=== PATIENT | female | born 1990 | race Caucasian/White ===

== ENCOUNTER 2020-02-21 07:05 | Inpatient (IN) | payer BC, MEDICAID ==
[2020-02-21] MEDS ORDERED: Misoprostol 50 MCG (1/2 of 100 MCG) Tab VAG ONE ×3 (07:15→18:00)
[2020-02-21] MEDS ORDERED: Sodium Chloride 0.9% 10 ML Syringe FLUSH PRN (08:20)
[2020-02-21] MEDS ORDERED: fentaNYL 100 MCG/2 ML SDV IVPUSH PRN (08:20)
--- NOTE | 2020-02-21 08:32 | PCM.LDHP ---
L&D History of Present Illness - General Date of Service: 02/21/20 (Planned induction) Admit Problem/Dx: Patient Status Order with Admit Dx/Problem 02/21/20 08:20 Patient Status [ADT] Routine Admission Diagnosis/Problem Admission Diagnosis/Problem Source of Information: Patient History Limitations: Reports: No Limitations - History of Present Illness Introduction:: This 29 year old who is 39 weeks gestation presents for induction, polyhydramnios and baby consistently in the 97th % for growth. CLEMENTE 02/28/20. 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: : 4 Para: 3 LMP (Approximate): (CLEMENTE 02/28/20) Social & Family History - Family History Family Medical History: Noncontributory - Tobacco Use Smoking Status *Q: Never Smoker Second Hand Smoke Exposure: No - Caffeine Use Caffeine Use: Reports: Coffee, Soda Other Caffeine Use: 1-2/day - Recreational Drug Use Recreational Drug Use: No H&P Review of Systems - Review of Systems: Review Of Systems: See Below General: Reports: No Symptoms HEENT: Reports: No Symptoms Pulmonary: Reports: No Symptoms Cardiovascular: Reports: No Symptoms Gastrointestinal: Reports: No Symptoms Genitourinary: Reports: No Symptoms Musculoskeletal: Reports: No Symptoms Skin: Reports: No Symptoms Psychiatric: Reports: No Symptoms Neurological: Reports: No Symptoms Hematologic/Lymphatic: Reports: No Symptoms Immunologic: Reports: No Symptoms L&D Exam - Exam Exam: See Below - Vital Signs Weight: 210 lb - OB Specific Movement: Active Heart Tones: Present Heart Tones per Min: 150 Heart Rate (FHR) Variability: Moderate (6-25 bmp) Presentation: Vertex Estimated Weight: 9lbs - Galvez Score Galvez Score Cervix Position: Anterior Galvez Score Consistency: Soft Galvez Score Effacement: 51-70% Galvez Score Dilation: 1-2 cm Galvez Score Infant's Station: -1 ,0 Galvez Score Total: 9 - Exam General: Alert, Oriented HEENT: PERRLA Neck: Supple Lungs: Clear to Auscultation, Normal Respiratory Effort Cardiovascular: Regular Rate, Regular Rhythm GI/Abdominal Exam: Soft Rectal Exam: Normal Exam Genitourinary: Normal external exam, Cervical dilitation, Enlarged uterus Back Exam: Normal Inspection, Full Range of Motion Extremities: Normal Inspection, No Pedal Edema, Normal Capillary Refill Skin: Warm Neurological: Cranial Nerves Intact, Reflexes Equal Bilateral Psychiatric: Alert, Normal Affect, Normal Mood - Patient Data Lab Results Last 24 hrs: Laboratory Results - last 24 hr 02/21/20 02/21/20 02/21/20 Range/Units 07:16 07:16 07:29 WBC 11.4 H (4.5-11.0) K/uL RBC 3.90 (3.30-5.50) M/uL Hgb 12.2 (12.0-15.0) g/dL Hct 37.3 (36.0-48.0) % MCV 96 (80-98) fL MCH 31 (27-31) pg MCHC 33 (32-36) % Plt Count 137 L (150-400) K/uL Neut % (Auto) 70 H (36-66) % Lymph % (Auto) 17 L (24-44) % [place] % (Auto) 11 H (2-6) % Eos % (Auto) 1 L (2-4) % Baso % (Auto) 0 (0-1) % Urine Color Yellow (YELLOW) Urine Appearance Clear (CLEAR) Urine pH 6.0 (5.0-8.0) Ur Specific [place] 1.010 (1.008-1.030) Urine Protein Negative (NEGATIVE) mg/dL Urine Glucose (UA) Negative (NEGATIVE) mg/dL Urine Ketones Negative (NEGATIVE) mg/dL Urine Occult Blood Negative (NEGATIVE) Urine Nitrite Negative (NEGATIVE) Urine Bilirubin Negative (NEGATIVE) Urine Urobilinogen 0.2 (0.2-1.0) EU/dL Ur Leukocyte Esterase Negative (NEGATIVE) Urine RBC 0-5 (0-5) Urine WBC 0-5 (0-5) Ur Epithelial Cells Not seen Amorphous Sediment Not seen Urine Bacteria Not seen Urine Mucus Not seen Urine Opiates Screen Negative (NEGATIVE) Ur Oxycodone Screen Negative (NEGATIVE) Urine Methadone Screen Negative (NEGATIVE) Ur Propoxyphene Screen Negative (NEGATIVE) Ur Barbiturates Screen Negative (NEGATIVE) Ur Tricyclics Screen Negative (NEGATIVE) Ur Phencyclidine Scrn Negative (NEGATIVE) Ur Amphetamine Screen Negative (NEGATIVE) U Methamphetamines Scrn Negative (NEGATIVE) Urine MDMA Screen Negative (NEGATIVE) U Benzodiazepines Scrn Negative (NEGATIVE) U Cocaine Metab Screen Negative (NEGATIVE) U Marijuana (THC) Screen Negative (NEGATIVE) Result Diagrams: 02/21/20 07:29 - Problem List (1) Large for gestational age fetus SNOMED Code(s): 978800274 ICD Code: UNQ3432 - Status: Acute Current Visit: Yes (2) Polyhydramnios affecting SNOMED Code(s): 98880870, 276171433 ICD Code: O40.9XX0 - POLYHYDRAMNIOS, UNSP TRIMESTER, NOT APPLICABLE OR UNSP Status: Acute Current Visit: Yes (3) SNOMED Code(s): 33715761 ICD Code: Z34.90 - ENCNTR FOR SUPRVSN OF NORMAL , UNSP, UNSP TRIMESTER Status: Acute Current Visit: Yes Qualifiers: Weeks of gestation: 39 weeks Qualified Code(s): Z3A.39 - 39 weeks gestation of Problem List Initiated/Reviewed/Updated: Yes Orders Last 24hrs: Active Orders 24 hr Category Date Time Status Patient Status [ADT] Routine ADT 02/21/20 08:20 Ordered Antiembolic Devices [RC] .Routine Care 02/21/20 08:23 Ordered Communication Order [RC] ASDIRECTED Care 02/21/20 08:20 Ordered Heart Tones [RC] PER UNIT ROUTINE Care 02/21/20 08:20 Ordered Non Stress Test [RC] Click to Edit Care 02/21/20 08:20 Ordered Notify Provider Vital Signs [RC] PRN Care 02/21/20 08:20 Ordered Notify Provider [RC] PRN Care 02/21/20 08:20 Ordered VTE/DVT Education [RC] Click to Edit Care 02/21/20 08:23 Ordered Vital Signs [RC] PER UNIT ROUTINE Care 02/21/20 08:20 Ordered Oxytocin/Normal Saline [Pitocin in NS 20 Units/1,000 ML Med 02/21/20 08:24 Ordered ] 20 unit in 1,000 ml IV ONETIME Sodium Chloride 0.9% [Saline Flush] Med 02/21/20 08:20 Ordered 10 ml FLUSH ASDIRECTED PRN fentaNYL [Sublimaze] Med 02/21/20 08:20 Ordered 100 mcg IVPUSH Q1H PRN DVT/VTE Prophylaxis Reflex [OM.PC] Routine Oth 02/21/20 08:20 Ordered Saline Lock Insert [OM.PC] Routine Oth 02/21/20 08:20 Ordered Resuscitation Status Routine Resus Stat 02/21/20 08:20 Ordered Medication Orders Fentanyl (Sublimaze) 100 mcg IVPUSH Q1H PRN PRN Reason: Pain (moderate 4-6) Oxytocin/Sodium Chloride (Pitocin In Ns 20 Units/1,000 Ml) 20 unit in 1,000 mls @ 999 mls/hr IV ONETIME ONE; Protocol Stop: 02/21/20 09:24 Sodium Chloride (Saline Flush) 10 ml FLUSH ASDIRECTED PRN PRN Reason: Keep Vein Open Assessment/Plan Comment:: 02/21/20 29 year old who is 39 weeks presents for induction history of polyhydramnios and large for gestation age baby. CE 2/50/0, galvez score 9 Miso 50 mcg placed vaginally at 0800 reactive NST Cat one strip monitor for active labor.
[2020-02-21] MEDS ORDERED: Misoprostol 25 MCG (1/4 of 100 MCG) Tab VAG ONE (11:54)
--- NOTE | 2020-02-21 12:18 | PCM.PNLD ---
Labor Progress Note - VS & Meds Vital Signs: Last Vital Signs Temp 98.0 F 02/21/20 08:00 Pulse 89 02/21/20 08:00 Resp 16 02/21/20 09:30 BP 122/62 02/21/20 09:30 Pulse Ox Active Medications: Current Medications Fentanyl (Sublimaze) 100 mcg IVPUSH Q1H PRN PRN Reason: Pain (moderate 4-6) Sodium Chloride (Saline Flush) 10 ml FLUSH ASDIRECTED PRN PRN Reason: Keep Vein Open Discontinued Medications Oxytocin/Sodium Chloride (Pitocin In Ns 20 Units/1,000 Ml) 20 unit in 1,000 mls @ 999 mls/hr IV ONETIME ONE; Protocol Stop: 02/21/20 10:00 Misoprostol (Cytotec) 50 mcg VAG ONETIME ONE Stop: 02/21/20 07:16 Last Admin: 02/21/20 08:11 Dose: 50 mcg Misoprostol (Cytotec) 50 mcg VAG ONETIME ONE Stop: 02/21/20 11:55 Misoprostol (Cytotec) 25 mcg VAG ONETIME ONE Stop: 02/21/20 11:55 Last Admin: 02/21/20 12:14 Dose: 25 mcg - Uterine Contractions Uterine Monitoring Mode: External [place] Contraction Frequency (min): 1-4 Contraction Duration (sec): 30-50 Contraction Intensity: Mild Uterine Resting Tone: Soft - Monitoring Monitor Mode: Doppler/Auscultation Heart Rate (FHR) Variability: Moderate (6-25 bmp) Accelerations: Present, 15x15 Decelerations: None Strip Review: Category I - Vaginal Exam Dilation (cm): 3-4 Effacement (Percent): 75 Station: 0 Cervical Position: Anterior Sterile Vaginal Exam Performed By: Aimee Daniel Vaginal Exam Comment: cytotec 25mcg inserted @ 12:11 - Labor Progress (Free Text) Labor Progress: progress since AM check. Tried AROM not successful. will try later if she doesn' t rupture on her own. comfortable will reassess at 1530 Monitor for active labor
[2020-02-21] MEDS ORDERED: Lactated Ringers 1,000 ML IV ONE (14:32)
[2020-02-21] MEDS ORDERED: Lactated Ringers 500 ML IV ONE (14:45)
--- NOTE | 2020-02-21 15:16 | PCM.PNLD ---
Labor Progress Note - VS & Meds Vital Signs: Last Vital Signs Temp 99.2 F 02/21/20 12:00 Pulse 94 02/21/20 12:00 Resp 18 02/21/20 12:00 BP 115/78 02/21/20 12:00 Pulse Ox 96 02/21/20 12:00 Active Medications: Current Medications Fentanyl (Sublimaze) 100 mcg IVPUSH Q1H PRN PRN Reason: Pain (moderate 4-6) Lactated Ringer's (Ringers, Lactated) 500 mls @ 999 mls/hr IV BOLUS ONE Stop: 02/21/20 15:15 Last Admin: 02/21/20 14:51 Dose: 999 mls/hr Sodium Chloride (Saline Flush) 10 ml FLUSH ASDIRECTED PRN PRN Reason: Keep Vein Open Discontinued Medications Oxytocin/Sodium Chloride (Pitocin In Ns 20 Units/1,000 Ml) 20 unit in 1,000 mls @ 999 mls/hr IV ONETIME ONE; Protocol Stop: 02/21/20 10:00 Last Admin: 02/21/20 12:58 Dose: Not Given Oxytocin/Sodium Chloride (Pitocin In Ns 20 Units/1,000 Ml) Confirm Administered Dose 20 unit in 1,000 mls @ as directed .ROUTE .STK-MED ONE Stop: 02/21/20 12:18 Misoprostol (Cytotec) 50 mcg VAG ONETIME ONE Stop: 02/21/20 07:16 Last Admin: 02/21/20 08:11 Dose: 50 mcg Misoprostol (Cytotec) 50 mcg VAG ONETIME ONE Stop: 02/21/20 11:55 Last Admin: 02/21/20 12:16 Dose: Not Given Misoprostol (Cytotec) 25 mcg VAG ONETIME ONE Stop: 02/21/20 11:55 Last Admin: 02/21/20 12:14 Dose: 25 mcg - Uterine Contractions Uterine Monitoring Mode: External [place] Contraction Frequency (min): 1-2 Contraction Duration (sec): 40-80 Contraction Intensity: Moderate Uterine Resting Tone: Soft - Monitoring Monitor Mode: Doppler/Auscultation Heart Rate (FHR) Variability: Moderate (6-25 bmp) Accelerations: Present, 15x15 Decelerations: None Strip Review: Category I - Vaginal Exam Dilation (cm): 5-6 Effacement (Percent): 75 Station: 0 Cervical Position: Anterior Sterile Vaginal Exam Performed By: Aimee Daniel Vaginal Exam Comment: AROM clear fluid - Labor Progress (Free Text) Labor Progress: contractions regular every 2 minutes. Cat 2 strip, variables, position change and fluids active labor Plan ancipitate a vaginal delivery
[2020-02-21] MEDS ORDERED: Carboprost Tromethamine 250 MCG/1 ML Amp IM ONE (18:00)
[2020-02-21] MEDS ORDERED: Carboprost Tromethamine 250 MCG/1 ML Amp ONE (18:08)
[2020-02-21] MEDS ORDERED: Misoprostol 200 MCG Tab ONE (18:08)
[2020-02-21] MEDS ORDERED: Acetaminophen 325 MG Tab, 50 Tab Bulk Bottle PO PRN (18:32)
[2020-02-21] MEDS ORDERED: Benzocaine 20% Top Spray 56 GM Bottle TOP ONE (18:32)
[2020-02-21] MEDS ORDERED: Ibuprofen 200 MG Tab, 24 Tab Bulk Bottle PO PRN (18:32)
[2020-02-21] MEDS ORDERED: Lanolin 100% Cream 40 GM Tube TOP ONE (18:32)
[2020-02-21] MEDS ORDERED: Witch Hazel Medicated Pads 100/Jar TOP ONE (18:32)
[2020-02-21] MEDS ORDERED: Hydrocortisone 2.5% Crm 30 GM Tube TOP PRN (18:32)
[2020-02-21] MEDS ORDERED: Methylergonovine 0.2 MG/1 ML Amp IM PRN (18:42)
--- NOTE | 2020-02-21 18:48 | PCM.DEL ---
L & D Note - General Info Date of Service: 02/21/20 (Chidbirth) Mother's Due Date: 02/28/20 - Delivery Note Labor: Spontaneous Cervical Ripening Method: Misoprostil Delivery Outcome: Livebirth Delivery Method: Spontaneous Vaginal Delivery-Single Infant Delivery Mode: Spontaneous Presentation: Vertex Nuchal Cord: None Anesthesia Type: Nitrous Oxide Amniotic Fluid Description: Clear Episiotomy Type: None Laceration: None Placenta: Intact, Spontaneous Cord: 3 Vessels Estimated Blood Loss: 500 (PPH) Resuscitation Needed: No : Bulb Syringe, Stimulated, Warmed Provider: Aimee Daniel Score 1 min: 8 Score 5 min: 9 Post Delivery Events: Hemorrhage Second Stage Interventions: Reports: Second Nurse Reviewed Heart Tones, Encouragement Given, Pushing Effectively, Pushing, McRobert's Position Delivery Comments (Free Text/Narrative):: This 29 year old G4now P4 who is 39 weeks gestation delivered a viable male over an intact perineum at 1753 in HARIS position. The was placed on mother's chest where he cried spontaneously. Delayed cord clamping and skin to skin were done. He was dried and stimulated Agars of 8,9 all for color. Three vessel cord. the placenta was expressed spontaneously and it was huge. Bleeding with placenta required Methergine, Hemabate and Cytotec as well as Pitocin that was running for active management of the third stage. Packing was placed in the vaginal as the vagina and perineum are intact. no lacerations to the rectum. EBL greater then 500cc weight 8-6 First stage 9247-8857 Second stage 3584-4598 third stage 4067-6962 Induction Criteria - Galvez Score Galvez Score Dilation: 1-2 cm Galvez Score Effacement: >80% Galvez Score Infant's Station: -1 ,0 Galvez Score Consistency: Soft Galvez Score Cervix Position: Midposition Galvez Score Total: 9 Galvez Score Presenting Part: Reports: Cephalic - Induction Gestational Age >/= 39 wks: Yes Estimated Pelvis: Reports: Adequate Reassuring Monitoring Strip: Yes Absence of Tachy Systole: Yes - General Info Date of Service: 02/21/20 Admission Dx/Problem (Free Text): Patient Status Order with Admit Dx/Problem 02/21/20 08:20 Patient Status [ADT] Routine Admission Diagnosis/Problem Admission Diagnosis/Problem Functional Status: Reports: Pain Controlled - Review of Systems General: Reports: No Symptoms HEENT: Reports: No Symptoms Pulmonary: Reports: No Symptoms Cardiovascular: Reports: No Symptoms Gastrointestinal: Reports: No Symptoms Genitourinary: Reports: No Symptoms Musculoskeletal: Reports: No Symptoms Skin: Reports: No Symptoms Neurological: Reports: No Symptoms Psychiatric: Reports: No Symptoms - Patient Data Vitals - Most Recent: Last Vital Signs Temp 98.5 F 02/21/20 15:00 Pulse 78 02/21/20 14:20 Resp 18 02/21/20 14:20 BP 111/65 02/21/20 14:20 Pulse Ox 100 02/21/20 15:18 Weight - Most Recent: 210 lb I&O - Last 24 Hours: Intake & Output 02/21/20 02/21/20 02/21/20 06:59 14:59 22:59 Intake Total 240 Balance 240 Lab Results Last 24 Hours: Laboratory Results - last 24 hr 02/21/20 02/21/20 02/21/20 Range/Units 07:16 07:16 07:29 WBC 11.4 H (4.5-11.0) K/uL RBC 3.90 (3.30-5.50) M/uL Hgb 12.2 (12.0-15.0) g/dL Hct 37.3 (36.0-48.0) % MCV 96 (80-98) fL MCH 31 (27-31) pg MCHC 33 (32-36) % Plt Count 137 L (150-400) K/uL Neut % (Auto) 70 H (36-66) % Lymph % (Auto) 17 L (24-44) % Yell % (Auto) 11 H (2-6) % Eos % (Auto) 1 L (2-4) % Baso % (Auto) 0 (0-1) % Urine Color Yellow (YELLOW) Urine Appearance Clear (CLEAR) Urine pH 6.0 (5.0-8.0) Ur Specific [place] 1.010 (1.008-1.030) Urine Protein Negative (NEGATIVE) mg/dL Urine Glucose (UA) Negative (NEGATIVE) mg/dL Urine Ketones Negative (NEGATIVE) mg/dL Urine Occult Blood Negative (NEGATIVE) Urine Nitrite Negative (NEGATIVE) Urine Bilirubin Negative (NEGATIVE) Urine Urobilinogen 0.2 (0.2-1.0) EU/dL Ur Leukocyte Esterase Negative (NEGATIVE) Urine RBC 0-5 (0-5) Urine WBC 0-5 (0-5) Ur Epithelial Cells Not seen Amorphous Sediment Not seen Urine Bacteria Not seen Urine Mucus Not seen Urine Opiates Screen Negative (NEGATIVE) Ur Oxycodone Screen Negative (NEGATIVE) Urine Methadone Screen Negative (NEGATIVE) Ur Propoxyphene Screen Negative (NEGATIVE) Ur Barbiturates Screen Negative (NEGATIVE) Ur Tricyclics Screen Negative (NEGATIVE) Ur Phencyclidine Scrn Negative (NEGATIVE) Ur Amphetamine Screen Negative (NEGATIVE) U Methamphetamines Scrn Negative (NEGATIVE) Urine MDMA Screen Negative (NEGATIVE) U Benzodiazepines Scrn Negative (NEGATIVE) U Cocaine Metab Screen Negative (NEGATIVE) U Marijuana (THC) Screen Negative (NEGATIVE) Med Orders - Current: Current Medications Acetaminophen (Tylenol Bulk Bottle) 0 mg PO Q4H PRN PRN Reason: Pain Benzocaine (Eqwl-V-Dthsbjz 20% Mertens) 0 gm TOP Q4H ONE Stop: 02/21/20 18:33 Emollient Ointment (Lansinoh Hpa) 1 gm TOP ASDIRECTED ONE Stop: 02/21/20 18:33 Fentanyl (Sublimaze) 100 mcg IVPUSH Q1H PRN PRN Reason: Pain (moderate 4-6) Hydrocortisone (Proctozone-Hc 2.5% Crm) 1 gm TOP ASDIRECTED PRN PRN Reason: Itching Ibuprofen (Motrin Bulk Bottle) 600 mg PO Q6H PRN PRN Reason: Pain Sodium Chloride (Saline Flush) 10 ml FLUSH ASDIRECTED PRN PRN Reason: Keep Vein Open Witch Kathy (Tucks) 1 pad TOP ASDIRECTED ONE Stop: 02/21/20 18:33 Discontinued Medications Carboprost Tromethamine (Hemabate Ds) Confirm Administered Dose 250 mcg .ROUTE .STK-MED ONE Stop: 02/21/20 18:09 Oxytocin/Sodium Chloride (Pitocin In Ns 20 Units/1,000 Ml) 20 unit in 1,000 mls @ 999 mls/hr IV ONETIME ONE; Protocol Stop: 02/21/20 10:00 Last Admin: 02/21/20 12:58 Dose: Not Given Oxytocin/Sodium Chloride (Pitocin In Ns 20 Units/1,000 Ml) Confirm Administered Dose 20 unit in 1,000 mls @ as directed .ROUTE .STK-MED ONE Stop: 02/21/20 12:18 Last Admin: 02/21/20 16:50 Dose: 999 mls/hr Lactated Ringer's (Ringers, Lactated) 500 mls @ 999 mls/hr IV BOLUS ONE Stop: 02/21/20 15:15 Last Admin: 02/21/20 14:51 Dose: 999 mls/hr Misoprostol (Cytotec) 50 mcg VAG ONETIME ONE Stop: 02/21/20 07:16 Last Admin: 02/21/20 08:11 Dose: 50 mcg Misoprostol (Cytotec) 50 mcg VAG ONETIME ONE Stop: 02/21/20 11:55 Last Admin: 02/21/20 12:16 Dose: Not Given Misoprostol (Cytotec) 25 mcg VAG ONETIME ONE Stop: 02/21/20 11:55 Last Admin: 02/21/20 12:14 Dose: 25 mcg Misoprostol (Cytotec) Confirm Administered Dose 800 mcg .ROUTE .STK-MED ONE Stop: 02/21/20 18:09 - Exam General: Alert, Oriented HEENT: Pupils Equal Neck: Supple Lungs: Clear to Auscultation, Normal Respiratory Effort Cardiovascular: Regular Rate, Regular Rhythm GI/Abdominal Exam: Normal Bowel Sounds, Soft, Non-Tender (Female) Exam: Normal External Exam, Enlarged Uterus, Vaginal Bleeding Back Exam: Normal Inspection Extremities: No Pedal Edema, Normal Capillary Refill Skin: Warm, Dry Wound/Incisions: Healing Well Neurological: No New Focal Deficit Psy/Mental Status: Alert, Normal Affect, Normal Mood - Problem List & Annotations (1) Large for gestational age fetus SNOMED Code(s): 097737217 Code(s): IAI5245 - Status: Acute Current Visit: Yes (2) Polyhydramnios affecting SNOMED Code(s): 71999775, 212735416 Code(s): O40.9XX0 - POLYHYDRAMNIOS, UNSP TRIMESTER, NOT APPLICABLE OR UNSP Status: Acute Current Visit: Yes (3) SNOMED Code(s): 11005969 Code(s): Z34.90 - ENCNTR FOR SUPRVSN OF NORMAL , UNSP, UNSP TRIMESTER Status: Acute Current Visit: Yes Qualifiers: Weeks of gestation: 39 weeks Qualified Code(s): Z3A.39 - 39 weeks gestation of - Problem List Review Problem List Initiated/Reviewed/Updated: Yes - My Orders Last 24 Hours: My Active Orders 02/21/20 08:20 Communication Order [RC] ASDIRECTED Heart Tones [RC] PER UNIT ROUTINE Non Stress Test [RC] Click to Edit Notify Provider Vital Signs [RC] PRN Notify Provider [RC] PRN Vital Signs [RC] PER UNIT ROUTINE Sodium Chloride 0.9% [Saline Flush] 10 ml FLUSH ASDIRECTED PRN fentaNYL [Sublimaze] 100 mcg IVPUSH Q1H PRN DVT/VTE Prophylaxis Reflex [OM.PC] Routine Saline Lock Insert [OM.PC] Routine Resuscitation Status Routine 02/21/20 08:23 Antiembolic Devices [RC] .Routine VTE/DVT Education [RC] Click to Edit 02/21/20 15:18 Communication Order [RC] Per Unit Routine Communication Order [RC] Per Unit Routine Communication Order [RC] Per Unit Routine Nitrous Oxide Delivery [RC] ASDIRECTED Oxygen Therapy [RC] ASDIRECTED Pulse Oximetry [RC] ASDIRECTED Verify Patient Consent Obtain [RC] ASDIRECTED Vital Signs [RC] PER UNIT ROUTINE 02/21/20 18:32 Patient Status [ADT] Routine Vital Signs [RC] PFP Acetaminophen [Tylenol Bulk Bottle] See Dose Instructions PO Q4H PRN Benzocaine [Tloe-R-Bksxtvn 20% Mertens] See Dose Instructions TOP Q4H ONE Hydrocortisone [Proctozone-HC 2.5% Crm] 1 gm TOP ASDIRECTED PRN Ibuprofen [Motrin Bulk Bottle] 600 mg PO Q6H PRN Lanolin [Lansinoh HPA] 1 gm TOP ASDIRECTED ONE witch Kathy [Tucks] 1 pad TOP ASDIRECTED ONE 02/22/20 05:11 CBC WITH AUTO DIFF [HEME] AM - Assessment Assessment:: 02/21/20 29 year old , 39 weeks gestational. with PPH greater then 500cc - Plan Plan:: 02/21/20 29 year old who is 39 weeks presents for induction history of polyhydramnios and large for gestation age baby. CE 2/50/0, galvez score 9 Miso 50 mcg placed vaginally at 0800 reactive NST Cat one strip monitor for active labor. 02/21/20 routine cares watch for bleeding CBC in am support
[2020-02-21] MEDS ORDERED: Ondansetron 4 MG/2 ML SDV IVPUSH ONE (18:53)
[2020-02-21] MEDS ORDERED: Metoclopramide 10 MG/2 ML SDV IVPUSH PRN (20:49)
[2020-02-21] MEDS ORDERED: Ondansetron 4 MG/2 ML SDV IVPUSH PRN (21:04)
--- NOTE | 2020-02-22 08:09 | PCM.PNPP ---
- General Info Date of Service: 02/22/20 Functional Status: Reports: Pain Controlled - Review of Systems General: Reports: No Symptoms HEENT: Reports: No Symptoms Pulmonary: Reports: No Symptoms Cardiovascular: Reports: No Symptoms Gastrointestinal: Reports: No Symptoms Genitourinary: Reports: No Symptoms Musculoskeletal: Reports: No Symptoms Skin: Reports: No Symptoms Neurological: Reports: No Symptoms Psychiatric: Reports: No Symptoms - General Info Date of Service: 02/22/20 - Patient Data Vital Signs - Most Recent: Last Vital Signs Temp 37.8 C 02/22/20 07:00 Pulse 82 02/22/20 07:00 Resp 18 02/22/20 07:00 BP 111/55 L 02/22/20 07:00 Pulse Ox 96 02/22/20 07:00 Weight - Most Recent: 95.254 kg I&O - Last 24 Hours: Intake & Output 02/21/20 02/22/20 02/22/20 22:59 06:59 14:59 Intake Total 2400 Output Total 300 Balance -300 2400 Lab Results - Last 24 Hours: Laboratory Results - last 24 hr 02/22/20 Range/Units 05:00 WBC 18.7 H (4.5-11.0) K/uL RBC 3.78 (3.30-5.50) M/uL Hgb 11.6 L (12.0-15.0) g/dL Hct 35.9 L (36.0-48.0) % MCV 95 (80-98) fL MCH 31 (27-31) pg MCHC 32 (32-36) % Plt Count 132 L (150-400) K/uL Neut % (Auto) 80 H (36-66) % Lymph % (Auto) 11 L (24-44) % [place] % (Auto) 9 H (2-6) % Eos % (Auto) 0 L (2-4) % Baso % (Auto) 0 (0-1) % Med Orders - Current: Current Medications Acetaminophen (Tylenol Bulk Bottle) 0 mg PO Q4H PRN PRN Reason: Pain Fentanyl (Sublimaze) 100 mcg IVPUSH Q1H PRN PRN Reason: Pain (moderate 4-6) Hydrocortisone (Proctozone-Hc 2.5% Crm) 1 gm TOP ASDIRECTED PRN PRN Reason: Itching Oxytocin/Sodium Chloride (Pitocin In Ns 20 Units/1,000 Ml) 20 unit in 1,000 mls @ 2,997 mls/hr IV TITRATE KRIS; Protocol Ibuprofen (Motrin Bulk Bottle) 600 mg PO Q6H PRN PRN Reason: Pain Last Admin: 02/21/20 18:55 Dose: 600 mg Methylergonovine Maleate (Methergine) 0.2 mg IM Q4H PRN PRN Reason: Bleeding Last Admin: 02/21/20 18:51 Dose: 0.2 mg Metoclopramide HCl (Reglan) 10 mg IVPUSH Q6H PRN PRN Reason: Nausea Last Admin: 02/21/20 21:08 Dose: 10 mg Ondansetron HCl (Zofran) 4 mg IVPUSH Q4H PRN PRN Reason: Nausea Sodium Chloride (Saline Flush) 10 ml FLUSH ASDIRECTED PRN PRN Reason: Keep Vein Open Discontinued Medications Benzocaine ([id number] 20% [place]) 0 gm TOP Q4H ONE Stop: 02/21/20 18:33 Last Admin: 02/22/20 01:16 Dose: Not Given Carboprost Tromethamine (Hemabate Ds) Confirm Administered Dose 250 mcg .ROUTE .STK-MED ONE Stop: 02/21/20 18:09 Last Admin: 02/21/20 18:41 Dose: 250 mcg Emollient Ointment (Lansinoh Hpa) 1 gm TOP ASDIRECTED ONE Stop: 02/21/20 18:33 Last Admin: 02/22/20 01:16 Dose: Not Given Oxytocin/Sodium Chloride (Pitocin In Ns 20 Units/1,000 Ml) 20 unit in 1,000 mls @ 999 mls/hr IV ONETIME ONE; Protocol Stop: 02/21/20 10:00 Last Admin: 02/21/20 12:58 Dose: Not Given Oxytocin/Sodium Chloride (Pitocin In Ns 20 Units/1,000 Ml) Confirm Administered Dose 20 unit in 1,000 mls @ as directed .ROUTE .STK-MED ONE Stop: 02/21/20 12:18 Last Admin: 02/21/20 16:50 Dose: 999 mls/hr Lactated Ringer's (Ringers, Lactated) 500 mls @ 999 mls/hr IV BOLUS ONE Stop: 02/21/20 15:15 Last Admin: 02/21/20 14:51 Dose: 999 mls/hr Oxytocin/Sodium Chloride (Pitocin In Ns 20 Units/1,000 Ml) Confirm Administered Dose 20 unit in 1,000 mls @ as directed .ROUTE .STK-MED ONE Stop: 02/21/20 19:40 Last Admin: 02/21/20 20:30 Dose: 999 mls/hr Misoprostol (Cytotec) 50 mcg VAG ONETIME ONE Stop: 02/21/20 07:16 Last Admin: 02/21/20 08:11 Dose: 50 mcg Misoprostol (Cytotec) 50 mcg VAG ONETIME ONE Stop: 02/21/20 11:55 Last Admin: 02/21/20 12:16 Dose: Not Given Misoprostol (Cytotec) 25 mcg VAG ONETIME ONE Stop: 02/21/20 11:55 Last Admin: 02/21/20 12:14 Dose: 25 mcg Misoprostol (Cytotec) Confirm Administered Dose 800 mcg .ROUTE .STK-MED ONE Stop: 02/21/20 18:09 Last Admin: 02/21/20 18:44 Dose: 800 mcg Ondansetron HCl (Zofran) 4 mg IVPUSH ONETIME ONE Stop: 02/21/20 18:54 Last Admin: 02/21/20 19:14 Dose: 4 mg Witch Kathy (Tucks) 1 pad TOP ASDIRECTED ONE Stop: 02/21/20 18:33 Last Admin: 02/21/20 20:31 Dose: Not Given - Interaction Infant Disposition, : in Room with Family Infant Interaction: Holding Infant Feeding: Attempted ; Nursed Fair/Poor Support Person: Significant Other - Recovery Exam Fundal Tone: Firm Fundal Level: At Umbilicus Fundal Placement: Midline Lochia Amount: Moderate Lochia Color: Rubra/Red Perineum Description: Intact, Minimal Bruising/Swelling Episiotomy/Laceration: None Bladder Status: Voiding Urinary Elimination: Voided - Exam General: Alert, Oriented, Cooperative HEENT: Pupils Equal, Pupils Reactive, EOMI, Mucous Membr. Moist/[place] Neck: Supple Lungs: Clear to Auscultation, Normal Respiratory Effort Cardiovascular: Regular Rate, Regular Rhythm GI/Abdominal Exam: Normal Bowel Sounds, Soft, Non-Tender, No Organomegaly, No Distention, No Abnormal Bruit, No Mass, Pelvis Stable Extremities: Normal Inspection, Normal Range of Motion, Non-Tender, No Pedal Edema, Normal Capillary Refill Skin: Warm, Dry, Intact Neurological: No New Focal Deficit Psy/Mental Status: Alert, Normal Affect, Normal Mood - Problem List & Annotations (1) (infant) SNOMED Code(s): 129710654 Code(s): Z78.9 - OTHER SPECIFIED HEALTH STATUS Status: Acute Current Visit: Yes (2) hemorrhage SNOMED Code(s): 49128789 Code(s): O72.1 - OTHER IMMEDIATE HEMORRHAGE Status: Acute Current Visit: Yes (3) Vaginal delivery SNOMED Code(s): 873174947 Code(s): O80 - ENCOUNTER FOR FULL-TERM UNCOMPLICATED DELIVERY Status: Acute Current Visit: Yes - Problem List Review Problem List Initiated/Reviewed/Updated: Yes - Assessment Assessment:: 02/21/20 29 year old , 39 weeks gestational. with PPH greater then 500cc 02/22/2020 day one Voiding and passing gas Bleeding decreasing PPH-hgb today-11.6 poor - Plan Plan:: 02/21/20 29 year old who is 39 weeks presents for induction history of polyhydramnios and large for gestation age baby. CE 2/50/0, galvez score 9 Miso 50 mcg placed vaginally at 0800 reactive NST Cat one strip monitor for active labor. 02/21/20 routine cares watch for bleeding CBC in am support 02/22/2020 Continue routine cares Have see today Plan discharge tomorrow
--- NOTE | 2020-02-23 08:15 | PCM.PNPP ---
- General Info Date of Service: 02/23/20 - Review of Systems General: Reports: No Symptoms HEENT: Reports: No Symptoms Pulmonary: Reports: No Symptoms Cardiovascular: Reports: No Symptoms Gastrointestinal: Reports: No Symptoms Genitourinary: Reports: No Symptoms Musculoskeletal: Reports: No Symptoms Skin: Reports: No Symptoms Neurological: Reports: No Symptoms Psychiatric: Reports: No Symptoms - General Info Date of Service: 02/23/20 - Patient Data Vital Signs - Most Recent: Last Vital Signs Temp 36.9 C 02/23/20 04:06 Pulse 66 02/23/20 04:06 Resp 16 02/23/20 04:06 BP 120/68 02/23/20 04:06 Pulse Ox 98 02/23/20 04:06 Weight - Most Recent: 95.254 kg I&O - Last 24 Hours: Intake & Output 02/22/20 02/23/20 02/23/20 22:59 06:59 14:59 Intake Total 800 Balance 800 Med Orders - Current: Current Medications Acetaminophen (Tylenol Bulk Bottle) 0 mg PO Q4H PRN PRN Reason: Pain Fentanyl (Sublimaze) 100 mcg IVPUSH Q1H PRN PRN Reason: Pain (moderate 4-6) Hydrocortisone (Proctozone-Hc 2.5% Crm) 1 gm TOP ASDIRECTED PRN PRN Reason: Itching Oxytocin/Sodium Chloride (Pitocin In Ns 20 Units/1,000 Ml) 20 unit in 1,000 mls @ 2,997 mls/hr IV TITRATE KRIS; Protocol Ibuprofen (Motrin Bulk Bottle) 600 mg PO Q6H PRN PRN Reason: Pain Last Admin: 02/21/20 18:55 Dose: 600 mg Methylergonovine Maleate (Methergine) 0.2 mg IM Q4H PRN PRN Reason: Bleeding Last Admin: 02/21/20 18:51 Dose: 0.2 mg Metoclopramide HCl (Reglan) 10 mg IVPUSH Q6H PRN PRN Reason: Nausea Last Admin: 02/21/20 21:08 Dose: 10 mg Ondansetron HCl (Zofran) 4 mg IVPUSH Q4H PRN PRN Reason: Nausea Sodium Chloride (Saline Flush) 10 ml FLUSH ASDIRECTED PRN PRN Reason: Keep Vein Open Discontinued Medications Benzocaine (Misa-F-Ywptyux 20% [place]) 0 gm TOP Q4H ONE Stop: 02/21/20 18:33 Last Admin: 02/22/20 01:16 Dose: Not Given Carboprost Tromethamine (Hemabate Ds) Confirm Administered Dose 250 mcg .ROUTE .STK-MED ONE Stop: 02/21/20 18:09 Last Admin: 02/21/20 18:41 Dose: 250 mcg Carboprost Tromethamine (Hemabate Ds) 250 mcg IM ONETIME ONE Stop: 02/21/20 18:01 Last Admin: 02/21/20 18:00 Dose: 250 mcg Emollient Ointment (Lansinoh Hpa) 1 gm TOP ASDIRECTED ONE Stop: 02/21/20 18:33 Last Admin: 02/22/20 01:16 Dose: Not Given Oxytocin/Sodium Chloride (Pitocin In Ns 20 Units/1,000 Ml) 20 unit in 1,000 mls @ 999 mls/hr IV ONETIME ONE; Protocol Stop: 02/21/20 10:00 Last Admin: 02/21/20 12:58 Dose: Not Given Oxytocin/Sodium Chloride (Pitocin In Ns 20 Units/1,000 Ml) Confirm Administered Dose 20 unit in 1,000 mls @ as directed .ROUTE .STK-MED ONE Stop: 02/21/20 12:18 Last Admin: 02/21/20 16:50 Dose: 999 mls/hr Lactated Ringer's (Ringers, Lactated) 500 mls @ 999 mls/hr IV BOLUS ONE Stop: 02/21/20 15:15 Last Admin: 02/21/20 14:51 Dose: 999 mls/hr Oxytocin/Sodium Chloride (Pitocin In Ns 20 Units/1,000 Ml) Confirm Administered Dose 20 unit in 1,000 mls @ as directed .ROUTE .STK-MED ONE Stop: 02/21/20 19:40 Last Admin: 02/21/20 20:30 Dose: 999 mls/hr Misoprostol (Cytotec) 50 mcg VAG ONETIME ONE Stop: 02/21/20 07:16 Last Admin: 02/21/20 08:11 Dose: 50 mcg Misoprostol (Cytotec) 50 mcg VAG ONETIME ONE Stop: 02/21/20 11:55 Last Admin: 02/21/20 12:16 Dose: Not Given Misoprostol (Cytotec) 25 mcg VAG ONETIME ONE Stop: 02/21/20 11:55 Last Admin: 02/21/20 12:14 Dose: 25 mcg Misoprostol (Cytotec) Confirm Administered Dose 800 mcg .ROUTE .STK-MED ONE Stop: 02/21/20 18:09 Last Admin: 02/21/20 18:44 Dose: 800 mcg Misoprostol (Cytotec) 200 mcg VAG ONETIME ONE Stop: 02/21/20 18:01 Last Admin: 02/21/20 18:00 Dose: 200 mcg Ondansetron HCl (Zofran) 4 mg IVPUSH ONETIME ONE Stop: 02/21/20 18:54 Last Admin: 02/21/20 19:14 Dose: 4 mg Witch Kathy (Tucks) 1 pad TOP ASDIRECTED ONE Stop: 02/21/20 18:33 Last Admin: 02/21/20 20:31 Dose: Not Given - Interaction Infant Disposition, : [place] in Room with Family Interaction: Holding Infant Feeding: Attempted ; Nursed Fair/Poor Support Person: Significant Other - Recovery Exam Fundal Tone: Firm Fundal Level: 1 Fingerbreadths Below Umbilicus Fundal Placement: Midline Lochia Amount: Small Lochia Color: Rubra/Red Perineum Description: Intact, Minimal Bruising/Swelling Episiotomy/Laceration: None Bladder Status: Voiding Urinary Elimination: Voided - Exam General: Alert, Oriented, Cooperative HEENT: Pupils Equal, Pupils Reactive, EOMI, Mucous Membr. Moist/[place] Neck: Supple Lungs: Clear to Auscultation, Normal Respiratory Effort Cardiovascular: Regular Rate, Regular Rhythm GI/Abdominal Exam: Normal Bowel Sounds, Soft, Non-Tender, No Organomegaly, No Distention, No Abnormal Bruit, No Mass, Pelvis Stable Extremities: Normal Inspection, Normal Range of Motion, Non-Tender, No Pedal Edema, Normal Capillary Refill Skin: Warm, Dry, Intact Neurological: No New Focal Deficit Psy/Mental Status: Alert, Normal Affect, Normal Mood - Problem List & Annotations (1) () SNOMED Code(s): 128441216 Code(s): Z78.9 - OTHER SPECIFIED HEALTH STATUS Status: Acute Current Visit: Yes (2) hemorrhage SNOMED Code(s): 60244230 Code(s): O72.1 - OTHER IMMEDIATE HEMORRHAGE Status: Acute Current Visit: Yes (3) Vaginal delivery SNOMED Code(s): 046889824 Code(s): O80 - ENCOUNTER FOR FULL-TERM UNCOMPLICATED DELIVERY Status: Acute Current Visit: Yes - Problem List Review Problem List Initiated/Reviewed/Updated: Yes - Assessment Assessment:: 02/21/20 29 year old , 39 weeks gestational. with PPH greater then 500cc 02/22/2020 day one Voiding and passing gas Bleeding decreasing PPH-hgb today-11.6 poor 02/23/2020 day two Voiding and passing gas Bleeding decreasing and fundus firm much better Desires discharge home today - Plan Plan:: 02/21/20 29 year old who is 39 weeks presents for induction history of polyhydramnios and large for gestation age baby. CE 50/0, galvez score 9 Miso 50 mcg placed vaginally at 0800 reactive NST Cat one strip monitor for active labor. 02/21/20 routine cares watch for bleeding CBC in am support 02/22/2020 Continue routine cares Have see today Plan discharge tomorrow 02/23/2020 Continue routine cares Continue to encourage and support To see Aimee in clinic in 6 weeks for visit Discharge home today
== END 2020-02-23 10:45 | disposition home or self-care (01) | DRG 560 ==
LOC: JP.OB 07:05 → OBSVTOIN 17:53 → JP.OB 17:53 → JP.MS 22:42
PROVIDERS: ADMIT Nurse Practitioner Family; ATTEND Nurse Practitioner Family
PROC: 10E0XZZ Delivery of Products of Conception, External Approach (ICD-10-PCS; principal; 2020-02-21)
DX: O40.3XX0 Polyhydramnios, third trimester, not applicable or unspecified (principal); Z3A.39 39 weeks gestation of pregnancy; Z37.0 Single live birth; O72.1 Other immediate postpartum hemorrhage
CPT/HCPCS: 36415; 59409; 80305-QW; 81001; 85025; A9270-GY; J2210; J2405; J2590; J2765; J7120